=== PATIENT | male | born 1995 | race Caucasian/White ===

== ENCOUNTER 2016-09-20 21:14 | Emergency (ER) | payer BC ==
[~2016-09-20] VITALS: Ht 170.2 cm; Wt 82.4 kg
[~2016-09-20 21:14] MED LIST: ASCO10003 PO; MULT-513 PO; vitamin d PO
[2016-09-20 21:20] VITALS: TEMP 36.7; Ht 170.2 cm; Wt 82.4 kg
--- NOTE | 2016-09-20 22:20 | DIAGNOSTIC IMAGING REPORT ---
TESTICULAR ULTRASOUND HISTORY: Pain Bilateral testicular pain COMPARISON: None. FINDINGS: Right testis: Maximum dimension 4.6 cm. Normal vascular flow Left testis: Maximum dimension 4.2 cm. Normal vascular flow. IMPRESSION: Normal study Electronically signed by: Dell Park M.D. 09/20/2016 10:17 PM Dictated Date/Time: 09/20/2016 10:17 PM
[2016-09-20 22:26] VITALS: BP 107/64; PULSE 55; O2SAT 98
--- NOTE | 2016-09-20 23:01 | EMERGENCY ROOM VISIT NOTE ---
History First contact with patient: 21:39 Chief Complaint: TESTICULAR PAIN Stated Complaint: PAIN IN GENITAL AREA Nursing Triage Summary: see triage note. History of Present Illness The patient is a 21 year old male who presents to the Emergency Room with complaints of bilateral testicular pain for the past 3 weeks. The patient thought that it may have been his underwear, and switched from briefs to boxers. This did help somewhat, but never completely resolved his pain. The patient reports that his pain is worse with sitting, and resolves with standing. The pain does not radiate into the back or abdomen. He denies any scrotal swelling, urethral drainage, dysuria or blood in his urine. The patient is sexually active with a monogamous partner, and is not concerned for STI. He rates his discomfort a 7 out of 10. Review of Systems 10 system review was performed and was negative except for pertinent positives and negatives as indicated in history of present illness Past Medical/Surgical History Medical Problems: (1) No significant past medical history Surgical Problems: (1) No history of previous surgery Family History FH: diabetes mellitus FH: heart disease FH: hypertension Social History Smoking Status: Former Smoker Alcohol Use: occasionally Marital Status: single Housing Status: lives with family Occupation Status: unemployed Current/Historical Medications Scheduled Multivitamins/Minerals (Mvi With Minerals), 1 TAB PO DAILY Allergies Coded Allergies: Amoxicillin (Verified Allergy, Mild, ., 02/25/13) Physical Exam Vital Signs Date Time Temp Pulse Resp B/P Pulse Ox O2 Delivery O2 Flow Rate FiO2 09/20/16 22:26 55 18 107/64 98 Room Air 09/20/16 21:20 36.7 52 18 141/76 98 Room Air Physical Exam CONSTITUTIONAL: Healthy and well nourished. Alert and oriented X 3 with positive affect. Patient does not appear in any acute distress on exam. HEENT: Normocephalic, atraumatic. Pupils equal, round and reactive. NECK: Full active range of motion without discomfort. RESPIRATORY: Clear to auscultation bilaterally with no wheezing, crackles, rhonchi or stridor. CARDIOVASCULAR: Regular rate and rhythm with no murmurs, rubs or gallops. GASTROINTESTINAL: Bowel sounds present in all quadrants. No tenderness to palpation area GENITOURINARY: Circumcised male without any abnormal penile findings. No urethral drainage. No scrotal edema or erythema. The patient has tenderness to palpation of bilateral posterior testicles; however, there does not appear to be any epididymal fullness. No palpable masses within the scrotum, and no tenderness to palpation through the inguinal canals. MUSCULOSKELETAL: Full range of motion of all joints without discomfort. INTEGUMENTARY: No rash or other significant dermatologic conditions noted. NEUROLOGIC: No focal neurologic deficits noted. Medical Decision & Procedures ER Provider Diagnostic Interpretation: Testicular ultrasound does not show any acute findings. Radiologist report is as follows: TESTICULAR ULTRASOUND HISTORY: Pain Bilateral testicular pain COMPARISON: None. FINDINGS: Right testis: Maximum dimension 4.6 cm. Normal vascular flow Left testis: Maximum dimension 4.2 cm. Normal vascular flow. IMPRESSION: Normal study ED Course Patient history and physical exam were performed. Nurse's notes were reviewed. Vital signs were reviewed and normal. The patient refused any analgesics after initial exam. Testicular ultrasound was normal. The patient was encouraged to intermittently apply ice and wear an athletic support. Alternate ibuprofen and Tylenol for pain relief. The patient refused any prescription analgesics. The patient was provided contact information for Dr. Ki Swann , urologist, as needed for further follow-up. He may certainly return to the emergency department for any significantly worsening pain, testicular/scrotal swelling or fever. The patient was happy with plan of care, voiced understanding of all discharge instructions, and rated his pain a 5 out of 10 at the time of discharge. Medical Decision Patient presents with bilateral testicular pain. His physical exam that show posterior tenderness to palpation, otherwise is normal. His ultrasound is normal. Ultrasound is not suggestive of epididymitis. He has no testicular lesions or masses. There is no evidence for torsion on ultrasound. I do not suspect mumps. Impression Primary Impression: Bilateral testicular pain Departure Information Patient Instructions [facility]
== END 2016-09-20 22:49 | disposition home or self-care (01) ==
LOC: C.EDB 21:17 → C.EDC 22:49
DX: N50.811 Right testicular pain (principal); N50.812 Left testicular pain; Z83.3 Family history of diabetes mellitus; Z82.49 Family history of ischemic heart disease and other diseases of the circulatory system; Z87.891 Personal history of nicotine dependence